=== PATIENT | female | born 1960 | race Caucasian/White ===

== ENCOUNTER 2016-11-12 19:08 | Emergency (ER) | payer MEDICAID ==
[~2016-11-12] VITALS: Ht 172.7 cm; Wt 69.5 kg
[~2016-11-12 19:08] MED LIST: AMOXICILLIN 50500 MG PO; ASPIRIN 32325 MG/TAB PO; BP MED; CHANTIX1 TAB PO; LIPITOR20 MG PO; LOPRESSOR 550 MG/TAB PO; MAALOX EXTRA S150 ML PO; NITROSTAT0.4 MG/TAB SL; NORCO 325 MG-51 TAB PO; PEPCID 20MG TAB20 MG PO; PLAVIX 75MG TAB75 MG PO; PRINIVIL20 MG PO; ZITHROMAX Z PA250 MG PO
[2016-11-12 19:20] VITALS: TEMP 98.3
[2016-11-12 21:35] VITALS: BP 141/85; PULSE 62
== END 2016-11-12 21:37 | disposition home or self-care (01) ==
LOC: COL.ER 19:08
DX: R07.81 Pleurodynia (principal); I10 Essential (primary) hypertension; F17.210 Nicotine dependence, cigarettes, uncomplicated

== ENCOUNTER → 2017-05-08 | Outpatient (CLI) | payer MEDICAID | LOC: MC.RAD 08:57 | DX: Z12.31 Encounter for screening mammogram for malignant neoplasm of breast (principal) ==

== ENCOUNTER → 2018-12-01 | Outpatient (CLI) | payer OTHER | LOC: MC.RAD 07:45 | DX: Z12.31 Encounter for screening mammogram for malignant neoplasm of breast (principal) ==

== ENCOUNTER → 2018-12-03 | Outpatient (CLI) | payer OTHER | LOC: COL.RAD 10:21 | DX: M71.21 Synovial cyst of popliteal space [Baker], right knee (principal); M25.861 Other specified joint disorders, right knee ==

== ENCOUNTER → 2020-05-23 | Outpatient (CLI) | payer OTHER | LOC: MC.RAD 14:05 | DX: Z12.31 Encounter for screening mammogram for malignant neoplasm of breast (principal); N63.0 Unspecified lump in unspecified breast ==

== ENCOUNTER → 2020-11-09 | Outpatient (CLI) | payer BC | LOC: COL.RAD | DX: R05 Cough (principal) ==

== ENCOUNTER → 2020-12-19 | Outpatient (CLI) | payer BC | LOC: COL.RAD 08:07 | DX: K44.9 Diaphragmatic hernia without obstruction or gangrene (principal); J43.9 Emphysema, unspecified; Q31.3 Laryngocele; F17.290 Nicotine dependence, other tobacco product, uncomplicated | CPT/HCPCS: Q9967 ==

== ENCOUNTER → 2021-05-30 | Outpatient (CLI) | payer BC | LOC: MC.RAD 08:06 | DX: Z12.31 Encounter for screening mammogram for malignant neoplasm of breast (principal) ==

== ENCOUNTER → 2022-04-26 | Outpatient (CLI) | payer BC | LOC: COL.RAD 06:38 | DX: F17.210 Nicotine dependence, cigarettes, uncomplicated (principal) ==

== ENCOUNTER → 2022-06-12 | Outpatient (CLI) | payer BC | LOC: MC.RAD 10:06 | DX: Z12.31 Encounter for screening mammogram for malignant neoplasm of breast (principal) ==

== ENCOUNTER → 2022-06-28 | Day surgery (SDC) | payer BC ==
[~2022-06-28] VITALS: Ht 172.7 cm; Wt 71.2 kg
[~2022-06-28] MED LIST changes: +AMITRIPTYLINE H25 M1 PO; +K-DUR 10 MEQ T10 MEQ PO; +NORVASC 5MG5 MG/TAB PO; +PRINZIDE 12.5 M1 TA1 PO; +PROTONIX 40MG T40 MG PO; +REQUIP 0.5MG0.5 MG PO
[2022-06-28 12:43] VITALS: BP 108/51; PULSE 56; TEMP 97.4
[2022-06-28 12:58] VITALS: BP 109/63; PULSE 56
[2022-06-28 13:13] VITALS: BP 105/52; PULSE 54
[2022-06-28 13:28] VITALS: BP 113/54; PULSE 54
[2022-06-28 13:43] VITALS: BP 121/44; PULSE 56
--- NOTE | 2022-06-28 14:00 | NUR ---
1243 RETURNS TO ROOM 6. AMBULATES FROM CART TO RECLINER WITH STANDBY ASSIST. ALERT. SEATED IN RECLINER WITH FEET ELEVATED. MONITORS APPLIED. VITAL SIGNS OBTAINED. DENIES NAUSEA, ABD PAIN OR DIFFICULTY SWALLOWING. 1305 TOLERATES PO JUICE AND MUFFIN WITHOUT NAUSEA. DENIES DYSPHAGIA. 1316 DR. HARDING HERE TO VISIT WITH PATIENT. 1335 DISCHARGE INSTRUCTIONS REVIEWED. PATIENT VERBALIZES UNDERSTANDING. COPY PROVIDED IN DISCHARGE FOLDER. 1340 PATIENT DRESSES SELF. WAITING FOR FRIEND TO ARRIVE FOR TRANSPORT HOME.
[2022-06-28 16:36] VITALS: BP 112/60; PULSE 51; TEMP 97.6
== END ==
LOC: SDCO 09:55
DX: K62.1 Rectal polyp (principal); D50.9 Iron deficiency anemia, unspecified; K57.30 Diverticulosis of large intestine without perforation or abscess without bleeding; K44.9 Diaphragmatic hernia without obstruction or gangrene; K31.89 Other diseases of stomach and duodenum
CPT/HCPCS: J2704; J7120

== ENCOUNTER → 2023-07-23 | Outpatient (CLI) | payer BC | LOC: CANSCHCLI → MC.RAD 08:34 | DX: Z12.31 Encounter for screening mammogram for malignant neoplasm of breast (principal) ==

== ENCOUNTER → 2024-04-19 | Outpatient (CLI) | payer BC | LOC: COL.RAD 13:59 | DX: Z12.2 Encounter for screening for malignant neoplasm of respiratory organs (principal); F17.200 Nicotine dependence, unspecified, uncomplicated ==